=== PATIENT | female | born 1965 | race Asian ===

== ENCOUNTER 2019-05-26 19:39 | Emergency (ER) | payer OTHER, SELFPAY ==
[2019-05-26 19:46] VITALS: BP 218/95; PULSE 75; RESP 16; TEMP 36.7; O2SAT 100
--- NOTE | 2019-05-26 20:08 | PC.NURSE ---
Pt was exposed to ammonia at work,then began having blurred vision. Pt saw nurse at work and they found that she was hypertensive. Told to go to the ED. Pt denies pain or SOB
[2019-05-26 20:38] VITALS: BP 162/79; PULSE 78
[2019-05-26 21:01] LABS: Blood Urea Nitrogen 13 mg/dL (7-17); Calcium 9.9 mg/dL (8.4-10.2); Carbon Dioxide 28 mmol/L (22-32); Chloride 102 mmol/L (98-107); Estimated Glomerular Filt Rate > 60.0 mL/min (>60); Glucose 116 mg/dL (70-100); HEMOLYSIS < 15 (0-50); Potassium 3.6 mmol/L (3.4-5.1); Sodium 141 mmol/L (137-145)
[2019-05-26 21:17] LABS: Add Manual Diff / Slide Review NO; Basophils Absolute Auto 0 /uL (0-100); Basophils Percent Auto 0.4 % (0-2); Eosinophils Absolute Auto 0 /uL (0-450); Eosinophils Percent Auto 0.4 % (2-4); Hematocrit 39.1 % (36-46); Hemoglobin 13.7 g/dL (12.0-16.0); Lymphocytes Absolute Auto 2900 /uL (1100-4500); Lymphocytes Percent Auto 37.8 % (25-40); Mean Corpuscular Hemoglobin 31.3 PG (26-34); Mean Corpuscular Volume 89.5 fL (80-100); Monocytes Absolute Auto 300 /uL (0-900); Monocytes Percent Auto 3.6 % (3-14); Neutrophils Absolute Auto 4500 /uL (1500-7000); Neutrophils Percent Auto 57.8 % (50-75); Platelet Count 292 X10^3/uL (150-400); Red Blood Cell Count 4.37 X10^6/uL (4.0-5.2); Red Cell Distribution Width 13.2 % (11.6-14.8); White Blood Cell Count 7.7 X10^3/uL (4.5-11.0)
--- NOTE | 2019-05-26 21:19 | ED.GENADULT ---
HPI - General Adult General Chief complaint: Hypertension Stated complaint: high blood pressure Time Seen by Provider: 05/26/19 19:57 Source: patient Mode of arrival: Ambulatory Limitations: language barrier History of Present Illness HPI narrative: Patient is a 54-year-old female. [place] Citizen is her 2nd language. She is here with family. Her provided translation. I offered translation services but they declined. Patient is here for evaluation of hypertension and also eye pain and runny nose and pain behind her eyes. Appears that all these symptoms started earlier today when she was exposed to a very strong ammonia smell while she is at work. She states that many of the symptoms that happened immediately have improved if not completely resolved. She had similar symptoms a couple days ago when she was exposed to the smell as well. Related Data Previous Rx's Medication Instructions Recorded mupirocin 2 % TOPICAL TID #22 gm 06/15/16 [id number] 0 OTIC SEE INSTRUCTIONS #10 ml 06/15/16 Allergies Allergy/AdvReac Type Severity Reaction Status Date / Time No Known Drug Allergies Allergy Verified 05/26/19 19:50 Review of Systems Constitutional Constitutional: Denies fever(s) and Reports headache(s) Eyes Comments: Pain and burning in the eyes ENT Ears, Nose, Mouth, and Throat: Reports headache(s), Denies neck pain and Denies throat swelling Cardiovascular Cardiovascular: Denies chest pain and Denies dyspnea Respiratory Respiratory: Denies cough and Denies dyspnea Musculoskeletal Musculoskeletal: Denies neck pain Integumentary/Breasts Skin/Breast: Denies rash Neurologic Neurologic: Reports headache(s) Hematologic/Lymphatic Hematologic/Lymphatic: Denies easy bleeding and Denies easy bruising Allergic/Immunologic Allergic/Immunologic: Denies throat swelling Patient History Medical History Patient denies medical problems (Acute) Social History Smoking Status: Never smoker Substance Use Type: does not use Exam Initial Vital Signs Initial Vital Signs: Vital Signs Temperature 98.0 F 05/26/19 19:46 Pulse Rate 75 05/26/19 19:46 Respiratory Rate 16 05/26/19 19:46 Blood Pressure 218/95 H 05/26/19 19:46 Pulse Oximetry 100 05/26/19 19:46 Const General: cooperative and comfortable Orientation: alert and awake HENMT Head: normal to inspection and normocephalic Ears: TM's normal bilaterally Nose: external nose normal Face and sinus: normal facial exam Mouth: oral mucosae normal Eyes Pupils: PERRL EOM: EOM intact bilaterally Resp Effort & Inspection: normal respiratory effort Auscultation: clear to auscultation bilaterally Cardio Rate: regular rate Rhythm: regular rhythm Skin Lesions: no lesions Rashes: no rashes Neuro General: alert and awake Cognition: normal cognition Extrem General: normal to inspection and capillary refill normal Psych Appearance: grossly normal and well kempt Course Orders Ordered: ED Orders 05/26/19 20:00 Basic Metabolic Panel Stat CBC Auto Diff [Complete Blood Count AUTO DIFF] Stat 05/26/19 20:44 EKG-12 Lead Routine Vital Signs Vital signs: Vital Signs - 8 hr 05/26/19 19:46 05/26/19 20:38 05/26/19 21:39 Temperature 98.0 F Pulse Rate 75 78 72 Respiratory Rate 16 Blood Pressure 218/95 H Blood Pressure [Left Arm] 162/79 H 144/75 H Pulse Oximetry 100 Medical Decision Making Lab Data Lab results reviewed: Yes I reviewed the patient's lab results. Result diagrams: 05/26/19 20:00 05/26/19 20:00 Labs: Lab Results 05/26/19 05/26/19 Range/Units 20:00 20:00 WBC 7.7 (4.5-11.0) X10^3/uL RBC 4.37 (4.0-5.2) X10^6/uL Hgb 13.7 (12.0-16.0) g/dL Hct 39.1 (36-46) % MCV 89.5 (80-100) fL MCH 31.3 (26-34) PG MCHC 35.0 (30-36) % RDW 13.2 (11.6-14.8) % Plt Count 292 (150-400) X10^3/uL Neut % (Auto) 57.8 (50-75) % Lymph % (Auto) 37.8 (25-40) % [place] % (Auto) 3.6 (3-14) % Eos % (Auto) 0.4 L (2-4) % Baso % (Auto) 0.4 (0-2) % Neut # (Auto) 4500 (7879-6045) /uL Lymph # (Auto) 2900 (0730-1714) /uL [place] # (Auto) 300 (0-900) /uL Eos # (Auto) 0 (0-450) /uL Baso # (Auto) 0 (0-100) /uL Sodium 141 (137-145) mmol/L Potassium 3.6 (3.4-5.1) mmol/L Chloride 102 (98-107) mmol/L Carbon Dioxide 28 (22-32) mmol/L BUN 13 (7-17) mg/dL Creatinine 0.50 L (0.52-1.04) mg/dL Estimated GFR > 60.0 (>60) mL/min BUN/Creatinine Ratio 26.0 H (6-22) Glucose 116 H (70-100) mg/dL Calcium 9.9 (8.4-10.2) mg/dL ECG Data Attestation: I personally reviewed and interpreted this ECG as follows: Prior ECG tracings: not available for review Interpretation: Sinus rhythm Ventricular rate is 72 Normal axis Normal QRS Normal QTC No ST T wave changes MDM Narrative Medical decision making narrative: Patient was slightly hypertensive here in the emergency department but no signs of end-organ damage for this. I do suspect that her symptoms were related to that strong ammonia smell that she was exposed to earlier this evening. This does seem to happen at work. I discussed this with the family. We will hold on further workup for now. I did inform her to talk with her place of employment about potentially using a respirator some sort of a mask. She expressed understanding and agreement plan. Discharge Plan Departure Patient Disposition: Home Clinical Impression: Environmental exposure Discharge Date/Time: 05/26/19 21:46 Activity Restrictions/Additional Instructions: Continue all of your medications as directed. Contact your primary provider for follow-up. Return to the emergency department for any new or worsening symptoms Prescriptions: No Action mupirocin 2 % ointment 2 % Topical TID Qty: 22 RF: 0 [id number] 10 ML drops,suspension 0 OTIC SEE INSTRUCTIONS Qty: 10 RF: 0 Stand Alone Forms: Work Release Note
[2019-05-26 21:39] VITALS: BP 144/75; PULSE 72
== END 2019-05-26 21:46 | disposition home or self-care (01) ==
PROVIDERS: Emergency Provider Emergency Medicine
DX: T75.89XA Other specified effects of external causes, initial encounter (principal); I10 Essential (primary) hypertension; H57.13 Ocular pain, bilateral; R51 Headache; Y99.0 Civilian activity done for income or pay
CPT/HCPCS: 36415; 80048; 85025; 93005; 93010; 99282; 99284